=== PATIENT | male | born 1960 | race Caucasian/White ===

== ENCOUNTER 2018-01-06 11:44 | Emergency (ER) | payer OTHER ==
[~2018-01-06] VITALS: Ht 175.3 cm; Wt 79.4 kg
[2018-01-06 12:23] VITALS: BP 146/73
--- NOTE | 2018-01-06 13:11 | RAD ---
Examination: NECK SOFT TISSUE History: PT STATES CROWN CAME OFF AT DINNER LAST NIGHT, CAN FEEL IN THROAT, JUST CAN'T GRAB. Comparison/Correlation: None Findings: Frontal and lateral views of the soft tissues of the neck were obtained. Prevertebral soft tissues are normal. No fracture or bony destructive change involving bony structures of the lateral view is limited due to only the C7 superior endplate level. There is no soft tissue gas. Epiglottis is normal. Visualized trachea is unremarkable. Lung apices are normal. No radiopaque foreign body. Impression: No radiopaque foreign body. Electronically signed by: Ravi Bravo MD (01/06/2018 1:08 PM) [facility]
--- NOTE | 2018-01-06 13:27 | PHYS DOC ---
Past Medical History Past Medical History: No Pertinent History Past Surgical History: No Surgical History Alcohol Use: None Drug Use: None Adult General Chief Complaint Chief Complaint: OTHER COMPLAINTS [facility] HPI Patient is a 57 year old male who presents today concerned he swallowed his dental crown yesterday. Patient states he feels the crown could be lodged in his throat though he has been able to tolerate his secretions as well as food today. Denies any difficulty breathing. Review of Systems Review of Systems Constitutional: Denies fever or chills [] Eyes: Denies change in visual acuity, redness, or eye pain [] HENT: Denies nasal congestion or sore throat [] Respiratory: Reports swallowing dental crown yesterday. Denies cough or shortness of breath [] Cardiovascular: No additional information not addressed in HPI [] GI: Denies abdominal pain, nausea, vomiting, bloody stools or diarrhea [] : Denies dysuria or hematuria [] Musculoskeletal: Denies back pain or joint pain [] Integument: Denies rash or skin lesions [] Neurologic: Denies headache, focal weakness or sensory changes [] All other systems were reviewed and found to be within normal limits, except as documented in this note. Allergies Allergies Allergies Coded Allergies Type Severity Reaction Last Updated Verified No Known Drug Allergies 01/06/18 No Physical Exam Physical Exam Constitutional: Well developed, well nourished, no acute distress, non-toxic appearance. [] HENT: Normocephalic, atraumatic, bilateral external ears normal, oropharynx moist, no oral exudates, nose normal. [] Eyes: PERRLA, EOMI, conjunctiva normal, no discharge. [] Neck: Normal range of motion, no tenderness, supple, no stridor. [] Cardiovascular:Heart rate regular rhythm, no murmur [] Lungs & Thorax: Bilateral breath sounds clear to auscultation [] Abdomen: Bowel sounds normal, soft, no tenderness, no masses, no pulsatile masses. [] Skin: Warm, dry, no erythema, no rash. [] Back: No tenderness, no CVA tenderness. [] Extremities: No tenderness, no cyanosis, no clubbing, ROM intact, no edema. [] Neurologic: Alert and oriented X 3, normal motor function, normal sensory function, no focal deficits noted. [] Psychologic: Affect normal, judgement normal, mood normal. [] Current Patient Data Vital Signs Vital Signs Date Time Temp Pulse Resp B/P (MAP) Pulse Ox O2 Delivery O2 Flow Rate FiO2 01/06/18 12:23 97.8 69 16 146/73 (97) 96 Room Air 97.8 EKG EKG [] Radiology/Procedures Radiology/Procedures []ROCEDURE: NECK SOFT TISSUE Examination: NECK SOFT TISSUE History: PT STATES CROWN CAME OFF AT DINNER LAST NIGHT, CAN FEEL IN THROAT, JUST CAN'T GRAB. Comparison/Correlation: None Findings: Frontal and lateral views of the soft tissues of the neck were obtained. Prevertebral soft tissues are normal. No fracture or bony destructive change involving bony structures of the lateral view is limited due to only the C7 superior endplate level. There is no soft tissue gas. Epiglottis is normal. Visualized trachea is unremarkable. Lung apices are normal. No radiopaque foreign body. Impression: No radiopaque foreign body. Electronically signed by: Kayla Martinez MD (01/06/2018 1:08 PM) [facility] DICTATED and SIGNED BY: KAYLA MARTINEZ MD DATE: 01/06/18 1249 Course & Med Decision Making Course & Med Decision Making Pertinent Labs and Imaging studies reviewed. (See chart for details) This is a 57-year-old male patient presenting to the ED today concerned he swallowed his dental crown yesterday and feels it could be lodged in his throat. He is able to tolerate his secretions and tolerated meals today. Soft tissue neck x-rays are negative for any acute findings. Patient was discharged to home. Instructed to follow-up with his own doctor when he gets back home. Instructed to return to the ED at any point symptoms worsen. Dragon Disclaimer Dragon Disclaimer This electronic medical record was generated, in whole or in part, using a voice recognition dictation system. Departure Departure Impression: Primary Impression: Foreign body Disposition: 01 HOME, SELF-CARE Condition: STABLE Referrals: UNKNOWN PCP NAME (PCP) Follow-up with your own doctor as soon as you get home. Patient Instructions: Swallowed Foreign Body, Adult Additional Instructions: You were evaluated in the emergency room, we did not find any foreign object in your neck x-rays. If you swallowed the crown it is going to come out in your stool, check your stools daily for the crown. Follow-up with your own doctor as soon as you get home. Come back to the ED at any point symptoms worsen. TAYLOR REESE APRN Jan 06, 2018 13:27
== END 2018-01-06 13:34 | disposition home or self-care (01) ==
LOC: ER 11:44
DX: T18.8XXA Foreign body in other parts of alimentary tract, initial encounter (principal); X58.XXXA Exposure to other specified factors, initial encounter; Y93.89 Activity, other specified; Y92.89 Other specified places as the place of occurrence of the external cause; Y99.8 Other external cause status
CPT/HCPCS: 70360; 99284